=== PATIENT | male | born 1975 | race Caucasian/White ===

== ENCOUNTER 2018-01-14 21:56 | Emergency (ER) | payer OTHER ==
[~2018-01-14] VITALS: Ht 177.8 cm; Wt 140.0 kg
[2018-01-14 22:11] VITALS: BP 136/106
[2018-01-15] MEDS ORDERED: KEFLEX500 MG PO (01:29)
[2018-01-15] MEDS ORDERED: MOTRIN600 MG PO (01:30)
[2018-01-15] MEDS ORDERED: TRAMADOL HCL50 MG PO (01:30)
== END 2018-01-15 01:45 | disposition home or self-care (01) ==
LOC: EME 21:56
DX: S61.225A Laceration with foreign body of left ring finger without damage to nail, initial encounter (principal); W31.2XXA Contact with powered woodworking and forming machines, initial encounter; Y99.0 Civilian activity done for income or pay; Z23 Encounter for immunization; M10.9 Gout, unspecified; F17.200 Nicotine dependence, unspecified, uncomplicated
CPT/HCPCS: 73140; 99281; 99283